=== PATIENT | female | born 1990 | race Two or more races ===

== ENCOUNTER 2019-12-26 08:42 | Emergency (ER) | payer MEDICAID, OTHER ==
[~2019-12-26] VITALS: Ht 165.1 cm; Wt 68.0 kg
[2019-12-26 08:50] VITALS: BP 130/86
[2019-12-26] MEDS ORDERED: ACETAMINOPHEN 325MG TABLET PO ONE (09:45)
[2019-12-26] MEDS ORDERED: TETANUS, DIPHTHERIA, PERTUSSIS VAC/PF 0.5ML (>7YR OLD) IM ONE (10:45)
[2019-12-26 11:47] LABS: CLARITY URINE CLOUDY (CLEAR); COLOR URINE DARK YELLOW (YELLOW); KETONES URINE 2+ (NEGATIVE); LEUKOCYTE ESTERASE URINE TRACE (NEGATIVE); NITRITE URINE NEGATIVE (NEGATIVE); OCCULT BLOOD URINE NEGATIVE (NEGATIVE); PROTEIN URINE NEGATIVE (NEGATIVE); SPECIFIC GRAVITY URINE 1.029 (1.005-1.030)
[2019-12-26] MEDS ORDERED: BACITRACIN ZINC OINT UDPKT TOP ONE (12:00)
[2019-12-26] MEDS ORDERED: LIDOCAINE 1%/EPI 1:100,000 10 ML VIAL IJ ONE (12:00)
[2019-12-26] MEDS ORDERED: LIDOCAINE HCL/EPINEPHRINE 1%-EPI 1:100,000 20 ML VIAL INFIL SCH (12:30)
== END 2019-12-26 14:36 | disposition home or self-care (01) ==
LOC: ER 08:42
DX: O71.89 Other specified obstetric trauma (principal); S01.421A Laceration with foreign body of right cheek and temporomandibular area, initial encounter; Z3A.00 Weeks of gestation of pregnancy not specified; Y04.0XXA Assault by unarmed brawl or fight, initial encounter; Y93.89 Activity, other specified; Y92.89 Other specified places as the place of occurrence of the external cause; Y99.8 Other external cause status
CPT/HCPCS: 12011; 36415; 70486; 81003; 81025; 84702; 99284; J3490